=== PATIENT | female | born 1950 | race Caucasian/White ===

== ENCOUNTER 2025-05-09 14:00 | Outpatient (CLI) | payer MEDICARE, SELFPAY ==
--- NOTE | ~2025-05-09 | CT_ITS ---
EXAMINATION: CT abdomen pelvis w con DATE: 05/09/2025 14:34 INDICATION: Weight loss. TECHNIQUE: Computed tomography (CT) of the abdomen and pelvis was performed with 100 mL Omnipaque 350 intravenous contrast. Automated exposure control and iterative reconstruction technique were employed. The dose-length product was 157.69 mGy-cm. COMPARISON: None. FINDINGS: The visualized portions of the lung bases demonstrate mild atelectasis. There is bronchiectasis and left lower lobe and lingula. There are centrilobular nodules in left lower lobe and lingula, consistent with mild infection. A calcified left lung nodule is consistent with old granulomatous di sease. No pleural effusion. The heart size is normal. No pericardial effusion. There are coronary artery calcifications. The liver, gallbladder, pancreas, and adrenal glands are normal. Calcifications in the spleen are consistent with old granulomatous disease. The kidneys are normal. The periuterine veins and left ovarian vein are enlarged, consistent with pelvic venous insufficiency. There is diverticulosis of the colon without evidence of diverticulitis. There are no dilated loops of bowel. The appendix is not visualized. There are no pathologically enlarged lymph nodes. There is no free intraperitoneal fluid. There is severe lumbar spondylosis. IMPRESSION: 1. Centrilobular nodules in left lung lower lobe and lingula, consistent mild infection. 2. Pelvic venous insufficiency. Reviewed, dictated and finalized at location E. IMPRESSION: 1. Centrilobular nodules in left lung lower lobe and lingula, consistent mild i nfection. 2. Pelvic venous insufficiency.
--- NOTE | ~2025-05-09 | CT_ITS ---
EXAMINATION:CT lung screening DATE: 05/09/2025 14:30 INDICATION: Personal history of nicotine dependence. TECHNIQUE: Computed tomography (CT) of the chest was performed without intravenous contrast. Automated exposure control and iterative reconstruction technique were employed. The dose-length product (DLP) was 61.85 mGy-cm. COMPARISON: None. FINDINGS: There is moderate emphysema. There is mild atelectasis bilaterally. There is bronchiectasis in left lower lobe and lingula with mucous plugging. There are clustered nodules in lingula measuring up to 4 mm, likely infection. There are a few other scattered nodules in the lungs measuring up to 3 mm. A calcified left lung nodule and calcified left hilar lymph nodes are consistent with old granulomatous disease. No pleural effusion. The heart size is normal. There are coronary artery calcifications. No pericardial effusion. 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 IMPRESSION: 1. Lung-RADS category 2: Benign appearance or behavior. Continue annual screening with noncontrast low-dose chest CT in 12 months. Reviewed, dictated and finalized at location E. IMPRESSION: 1. Lung-RADS category 2: Benign appearance or behavior. Continue annual screeni ng with noncontrast low-dose chest CT in 12 months.
[2025-05-09 14:31] LABS: Estimated Glomerular Filt Rate > 60
== END 2025-05-09 14:01 | disposition home or self-care (01) ==
PROVIDERS: PCP Internal Medicine Infectious Disease; Visit Provider Internal Medicine Infectious Disease
DX: R63.4 Abnormal weight loss (principal); Z12.2 Encounter for screening for malignant neoplasm of respiratory organs; Z87.891 Personal history of nicotine dependence
CPT/HCPCS: 71271; 74177; Q9967